=== PATIENT | female | born 1940 | race Caucasian/White ===

== ENCOUNTER 2018-07-16 08:19 | Day surgery (SDC) | payer MEDICARE, OTHER ==
[~2018-07-16 08:19] MED LIST: KETOROLAC TROMETHAMINE 0.45% 4 DROP/0.4 ML DROPERETTE OD PRN
[2018-07-16] MEDS: TETRACAINE HCL 0.5% OPH SOLN 0.6 ML DROPERETTE OD PRN ×4 (08:48→09:19)
[2018-07-16] MEDS: TROPICAMIDE 1% OPH SOLN 3 ML OD PRN ×3 (08:49→09:11)
[2018-07-16] MEDS: BESIFLOXACIN HCL 0.6% OPH SUSP 5 ML BOTTLE OD PRN ×4 (08:49→09:44)
[2018-07-16] MEDS: CYCLOPENTOLATE 0.2%/PHENYLEPHRINE 1% OPH SOLN 2 ML OD PRN ×3 (08:49→09:11)
[2018-07-16] MEDS ORDERED: MIDAZOLAM 2 MG/2 ML INJ ONE (09:28)
[2018-07-16] MEDS ORDERED: FENTANYL CITRATE INJ/PF 100 MCG/2 ML AMPUL ONE (09:28)
[2018-07-16] MEDS: CHONDR SU A NA/HYALUR INTRAOC KIT (SURGICARE) ONE ×2 (09:34)
[2018-07-16] MEDS: LIDOCAINE 1% INJ-PF (10 MG/ML) 30 ML SDV ONE ×2 (09:34)
[2018-07-16] MEDS: EPINEPHRINE INJ/PF 1 MG/1 ML AMPULE ONE ×2 (09:34)
[2018-07-16] MEDS: TOBRAMYCIN SULFATE/DEXAMETH OPH OINTMENT 3.5 GM ONE ×2 (09:44)
== END 2018-07-16 10:30 | disposition home or self-care (01) ==
LOC: SC 08:19
PROVIDERS: ATTEND Ophthalmology
DX: H25.11 Age-related nuclear cataract, right eye (principal); J45.909 Unspecified asthma, uncomplicated; I10 Essential (primary) hypertension; E78.00 Pure hypercholesterolemia, unspecified; E03.9 Hypothyroidism, unspecified; Z79.899 Other long term (current) drug therapy; Z79.51 Long term (current) use of inhaled steroids; Z85.42 Personal history of malignant neoplasm of other parts of uterus
CPT/HCPCS: 66984; V2788; J2250; J3490 ×3; A9270; J0171; J3010; 142

== ENCOUNTER 2018-07-30 09:07 | Day surgery (SDC) | payer MEDICARE, OTHER ==
[~2018-07-30 09:07] MED LIST changes: +CHONDR SU A NA/HYALUR INTRAOC KIT (SURGICARE) ONE; +EPINEPHRINE INJ/PF 1 MG/1 ML AMPULE ONE; -KETOROLAC TROMETHAMINE 0.45% 4 DROP/0.4 ML DROPERETTE OD PRN; +KETOROLAC TROMETHAMINE 0.45% 4 DROP/0.4 ML DROPERETTE OS PRN; +LIDOCAINE 1%/PHENYLEPHRINE 1.5% 1 ML VIAL ONE; +MIDAZOLAM 2 MG/2 ML INJ ONE
[2018-07-30] MEDS: TROPICAMIDE 1% OPH SOLN 3 ML OS PRN ×3 (09:19→09:44)
[2018-07-30] MEDS: CYCLOPENTOLATE 0.2%/PHENYLEPHRINE 1% OPH SOLN 2 ML OS PRN ×3 (09:19→09:44)
[2018-07-30] MEDS: BESIFLOXACIN HCL 0.6% OPH SUSP 5 ML BOTTLE OS PRN ×4 (09:20→10:08)
[2018-07-30] MEDS: TETRACAINE HCL 0.5% OPH SOLN 0.6 ML DROPERETTE OS PRN ×3 (09:21→09:50)
[2018-07-30] MEDS: TOBRAMYCIN SULFATE/DEXAMETH OPH OINTMENT 3.5 GM ONE ×2 (09:59→10:08)
== END 2018-07-30 10:51 | disposition home or self-care (01) ==
LOC: SC 09:07
PROVIDERS: ATTEND Ophthalmology
DX: H25.12 Age-related nuclear cataract, left eye (principal); Z98.41 Cataract extraction status, right eye; J45.909 Unspecified asthma, uncomplicated; I10 Essential (primary) hypertension; E78.00 Pure hypercholesterolemia, unspecified; E03.9 Hypothyroidism, unspecified; Z79.899 Other long term (current) drug therapy; Z79.51 Long term (current) use of inhaled steroids
CPT/HCPCS: 66984; V2788; J2250; J3490 ×2; A9270; J0171; J2370; 142